=== PATIENT | female | born 1975 | race Two or more races ===

== ENCOUNTER 2017-11-23 09:13 | Emergency (ER) | payer MEDICAID ==
[~2017-11-23] VITALS: Ht 139.7 cm; Wt 63.5 kg
[2017-11-23 09:35] VITALS: BP 124/62
[2017-11-23] MEDS ORDERED: GUAIFENESIN-CO118 M1 ORAL (09:55)
[2017-11-23 10:04] VITALS: BP 124/62
--- NOTE | 2017-11-23 10:09 | Emergency Room Report ---
History of Present Illness General Chief Complaint: Upper Respiratory Illness Source: Patient Present Illness HPI Patient's 42-year-old female who presented after increased nonproductive cough. Patient gradual onset of symptoms were patient had had been having similar symptoms for several weeks. The patient's son had similar illness. She did not have any fever. She denied past medical history. She reports having a worsening cough at night. She denied prior smoking. The cough is intermittent Allergies: Coded Allergies: No Known Allergies (Unverified , 11/23/17) Patient History Last Menstrual Period: 11/14/17 Now: No : 2 Para: 1 Reviewed Nursing Documentation: PMH: Agreed, PSxH: Agreed Nursing Documentation-PMH Past Medical History: No Stated History Review of Systems All Other Systems: negative except mentioned in HPI Physical Exam Vital Signs Date Time Temp Pulse Resp B/P (MAP) Pulse Ox O2 Delivery O2 Flow Rate FiO2 11/23/17 09:25 98.1 71 16 120/66 100 Room Air Sp02 EP Interpretation: reviewed, normal General Appearance: normal inspection, well appearing, no apparent distress, alert, GCS 15 Head: atraumatic ENT: normal ENT inspection, hearing grossly normal, normal voice Neck: normal inspection, full range of motion, supple, no bony tend Respiratory: normal inspection, lungs clear, normal breath sounds, no respiratory distress, no retraction, no wheezing Cardiovascular #1: regular rate, rhythm, no edema Gastrointestinal: normal inspection, normal bowel sounds, non tender, soft, no guarding, no hernia Genitourinary: no CVA tenderness Musculoskeletal: normal inspection, back normal, normal range of motion Neurologic: normal inspection, alert, responsive, speech normal Psychiatric: normal inspection, judgement/insight normal, mood/affect normal Skin: normal inspection, normal color, no rash Medical Decision Making Diagnostic Impression: Primary Impression: Upper respiratory infection ER Course Patient is a for cough. Differential diagnosis included but was not limited to bronchitis, pneumonia, pulmonary embolism, pericarditis, asthma, foreign body. Patient has a benign exam and does not appear to require any further imaging or laboratory testing at this time. The patient was given prescription for cough medication. The patient presented with what appears to be viral upper respiratory infection.The patient is advised to follow up with primary care doctor in 1-2 days. Patient is advised to return if any worsening condition or if any changes in status that are concerning. This report is dictated with [employer] software which may occasionally lead to discrepancies related to use of this software. Last Vital Signs Date Time Temp Pulse Resp B/P (MAP) Pulse Ox O2 Delivery O2 Flow Rate FiO2 11/23/17 10:04 98.0 77 18 124/62 100 Room Air Status: improved Disposition: HOME, SELF-CARE Condition: Stable Scripts Guaifenesin/Codeine Phos* (ROBITUSSIN AC*) 118 Ml Liquid 5 ML ORAL Q6H Y for For Cough, #118 ML 0 Refills Prov: John Joe 11/23/17 Referrals: NOT CHOSEN IPA/,REFERRING (PCP) Patient Instructions: Upper Respiratory Infection, Adult John Joe Nov 23, 2017 10:09
== END 2017-11-23 10:04 | disposition home or self-care (01) ==
LOC: EMR 09:40
DX: J06.9 Acute upper respiratory infection, unspecified (principal)
CPT/HCPCS: 99283